=== PATIENT | male | born 1990 | race Caucasian/White ===

== ENCOUNTER 2018-05-10 19:45 | Emergency (ER) | payer OTHER ==
[~2018-05-10] VITALS: Ht 175.3 cm; Wt 95.2 kg
[~2018-05-10 19:45] MED LIST: LOPRESSOR25 MG PO; PRINIVIL10 MG PO; PROTONIX20 MG PO; ULTRAM50 MG PO; ZOFRAN ODT4 MG PO
[2018-05-10 20:15] LABS: APPEARANCE CLEAR ((CLEAR)); BILIRUBIN NEGATIVE; BLOOD SMALL; COLOR YELLOW ((YELLOW)); GLUCOSE (STRIP) NEGATIVE; KETONES 5; LEUKOCYTES NEGATIVE; NITRITE NEGATIVE; PROTEIN (STRIP) 30; SPECIFIC GRAVITY 1.028 (1.000-1.030)
[2018-05-10 20:16] LABS: HEMATOCRIT 47.3 % (38.0-50.0); HEMOGLOBIN 16.4 G/DL (12.5-16.6); MCH 31.1 PG (29.0-34.0); MCHC 34.7 G/DL (30.0-36.0); MCV 89.6 FL (86-99); PLATELET COUNT 295 K/uL (156-360); RBC DIS.WIDTH-CV 13.2 % (11.8-14.6); RBC DIS.WIDTH-SD 43.7 % (39-53); RED BLOOD COUNT 5.28 M/uL (4.00-5.50)
[2018-05-10 20:18] LABS: BACTERIA RARE /HPF; EPITHELIAL CELLS RARE /HPF; MUCUS TRACE /LPF; UCUL ADDED? NO; WHITE BLOOD CELLS 0-5 /HPF (0-5)
[2018-05-10 20:24] LABS: ALBUMIN 4.7 g/dL (3.2-4.8); CHLORIDE 103 mEq/L (99-109); POTASSIUM 4.1 mEq/L (3.7-5.4); SODIUM 140 mEq/L (136-147)
[2018-05-10 20:26] LABS: GLUCOSE 91 mg/dL (70-99); TOTAL PROTEIN 7.8 g/dL (6.4-8.3)
[2018-05-10 20:28] LABS: TOTAL BILIRUBIN 1.1 mg/dL (0.0-1.0)
[2018-05-10 20:30] LABS: ALKALINE PHOSPHATASE 102 IU/L (3-129); CREATININE 1.1 mg/dL (0.6-1.3); GFR ESTIMATE (CALCULATED) > 59 mL/min/ (58.99-99999)
[2018-05-10 20:31] LABS: UREA NITROGEN (BUN) 9 mg/dL (9-23)
[2018-05-10 20:32] LABS: AST (GOT) 46 IU/L (2-34)
[2018-05-10 20:33] LABS: ALT (GPT) 125 IU/L (3-49); LIPASE 25 U/L (1.0-51.0)
[2018-05-10 20:54] LABS: SERUM ETHYL ALCOHOL < 10 mg/dL
[2018-05-10] MEDS ORDERED: ZOFRAN ODT4 MG PO (23:06)
[2018-05-10] MEDS ORDERED: LIBRIUM25 MG PO (23:06)
[2018-05-10 23:41] VITALS: BP 121/82
== END 2018-05-10 23:43 | disposition home or self-care (01) ==
LOC: EME 19:45
DX: R10.13 Epigastric pain (principal); R11.2 Nausea with vomiting, unspecified; F10.10 Alcohol abuse, uncomplicated; K76.0 Fatty (change of) liver, not elsewhere classified; I10 Essential (primary) hypertension; F17.200 Nicotine dependence, unspecified, uncomplicated
CPT/HCPCS: 76705; 80053; 81003; 83690; 83735; 85027; 93005; 99281; 99284; G0480; J2405; J3010; S0028